=== PATIENT | male | born 1980 | race American Indian/Alaskan Native ===

== ENCOUNTER 2019-09-07 12:05 | Emergency (ER) | payer SELFPAY ==
[2019-09-07 12:28] VITALS: BP 134/86; PULSE 65; TEMP 97.6; BMI 24.4
[2019-09-07] MEDS ORDERED: DIPHTH,PERTUSS(ACELL),TET 0.5 ML DISP.SYRIN IM ONE (12:49)
--- NOTE | 2019-09-07 13:00 | PDOC ---
History of Present Illness - General Chief Complaint: Bite Stated Complaint: LT. LEG DOG BITE Time Seen by Provider: 09/07/19 12:43 - History of Present Illness Initial Comments: 09/07/19 12:58 38-year-old male without comorbidities presents for evaluation of a dog bite on his left knee. 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 Past History - Past Medical History Home Medications: Ambulatory Orders Amox-Tr/K Cl [Augmentin - 875Mg Tablet] 1 tab PO BID #20 tablet 09/07/19 COPD: No - Surgical History Cholecystectomy: No Lung Surgery: No - Immunization History Immunization Up to Date: No - Psycho Social/Smoking Cessation Hx Smoking History: Never smoked Have you smoked in the past 12 months: No Information on smoking cessation initiated: No Hx Alcohol Use: No Drug/Substance Use Hx: No Review of Systems - Review of Systems Musculoskeletal: Yes: Joint Pain *Physical Exam - Vital Signs Last Vital Signs Temp Pulse Resp BP Pulse Ox 97.6 F 65 18 134/86 96 09/07/19 12:25 09/07/19 12:25 09/07/19 12:25 09/07/19 12:25 09/07/19 12:25 - Physical Exam 09/07/19 12:58 There are 2 puncture wounds on the medial aspect of the left knee. Mild surrounding erythema and overlying eschar. Full nonpainful range of motion of the left knee no instability or gross sensorimotor deficits or effusion. Neurovascular intact ED Treatment Course - RADIOLOGY Radiology Studies Ordered: Category Date Time Status KNEE 4 POS-LEFT [RAD] Stat Radiology 09/07/19 12:49 Taken Medical Decision Making - Medical Decision Making 09/07/19 12:58 I had an extensive conversation with the patient. Tetanus shot was updated prophylactic antibiotics were prescribed. He understands the signs and symptoms of septic arthritis and will follow-up with orthopedics closely within the next 1 to 2 days with instructions to return to the emergency room should symptoms worsen 09/07/19 13:00 X-rays of the left knee show no evidence of fracture or foreign body Discharge - Discharge Information Problems reviewed: Yes Clinical Impression/Diagnosis: Dog bite Condition: Stable Disposition: HOME - Admission No - Additional Discharge Information Prescriptions: Amox-Tr/K Cl [Augmentin - 875Mg Tablet] 1 tab PO BID #20 tablet - Follow up/Referral - Patient Discharge Instructions Patient Printed Discharge Instructions: DI for Animal Bites Additional Instructions: It is very important that you follow-up with orthopedic surgery in 1 to 2 days for further evaluation and treatment. Please take the antibiotics as directed and finish the entire course and without fail follow-up with orthopedics in 1 to 2 days. Return to the emergency room should you experience any fever chills or night sweats nausea vomiting or feelings of sickness. Redness increasing pain and swelling in the left knee may be signs of infection and may require potential operative intervention. Please keep a close eye on this knee and return to the emergency room should you experience any of the above symptoms and without fail follow-up with orthopedic surgery in 1 to 2 days whether you feel better or not. - Post Discharge Activity
== END 2019-09-07 13:36 | disposition home or self-care (01) ==
LOC: JERFT 12:05
PROC: 3E0234Z Introduction of Serum, Toxoid and Vaccine into Muscle, Percutaneous Approach (ICD-10-PCS; principal; 2019-09-07)
DX: S81.052A Open bite, left knee, initial encounter (principal); W54.0XXA Bitten by dog, initial encounter; Y93.89 Activity, other specified; Y92.89 Other specified places as the place of occurrence of the external cause; Y99.0 Civilian activity done for income or pay
CPT/HCPCS: 73564-TC-LT-FY; 90715; 99281-25